=== PATIENT | female | born 2000 | race African-American/Black ===

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

== ENCOUNTER 2018-03-19 20:53 | Emergency (ER) | payer OTHER ==
[~2018-03-19] VITALS: Ht 167.6 cm; Wt 59.0 kg
[2018-03-19 21:09] VITALS: BP 108/72
--- NOTE | 2018-03-19 21:31 | PHYS DOC ---
Past Medical History Past Medical History: Asthma Past Surgical History: Tonsillectomy Additional Past Surgical Histo: T&A Alcohol Use: None Drug Use: Marijuana Adult General Chief Complaint Chief Complaint: SHOULDER INJURY HPI HPI Patient is a 17 year old female who presents with intermittent episodes of mild right shoulder pain that began 3 weeks ago, patient states she was throwing trash over her head at [employer] when the pain began. Patient states the pain is intermittent and only occurs when she moves her right upper extremity especially lifting it above her head. Patient denies any pain right now. Review of Systems Review of Systems Constitutional: Denies fever or chills [] Musculoskeletal: Reports right shoulder pain Integument: Denies rash or skin lesions [] Neurologic: Denies headache, focal weakness or sensory changes [] All other systems were reviewed and found to be within normal limits, except as documented in this note. Allergies Allergies Allergies Coded Allergies Type Severity Reaction Last Updated Verified No Known Drug Allergies 12/21/17 No Physical Exam Physical Exam Constitutional: Well developed, well nourished, no acute distress, non-toxic appearance. [] Skin: Warm, dry, no erythema, no rash. [] Back: No tenderness, no CVA tenderness. [] Extremities: Right shoulder with no obvious deformity. No tenderness on exam. Slight pain elicited on elevation of the right upper extremity above the head. Most of the pain was on the right scapula. Full range of motion to the right upper extremity. Adequate radial, medial, ulnar sensation to the right hand. +2 right radial pulse. Cap refill less than 2 seconds the right fingers. Neurologic: Alert and oriented X 3, normal motor function, normal sensory function, no focal deficits noted. [] Psychologic: Affect normal, judgement normal, mood normal. [] Current Patient Data Vital Signs Vital Signs Date Time Temp Pulse Resp B/P (MAP) Pulse Ox O2 Delivery O2 Flow Rate FiO2 03/19/18 21:09 98.3 85 16 108/72 (84) 99 Room Air 98.3 EKG EKG [] Radiology/Procedures Radiology/Procedures []PROCEDURE: SHOULDER 2+V RIGHT Indication:Injury at work. Shoulder pain. TECHNIQUE: 3 views of the right shoulder COMPARISON:None FINDINGS/ impression: No acute fracture or dislocation. Visualized right lung is clear. No arthritis. Electronically signed by: Sonny Chandra DO (03/19/2018 9:32 PM) [facility] DICTATED and SIGNED BY: SONNY CHANDRA DO DATE: 03/19/182130 Course & Med Decision Making Course & Med Decision Making Pertinent Labs and Imaging studies reviewed. (See chart for details) This is a 17-year-old female patient presenting to the ED today with right shoulder pain that began 3 weeks ago when she was throwing trash over her head at [employer]. Right shoulder xrays interpreted by radiologist are negative for any acute findings. Patient likely strained her right shoulder. Ice elevation encouraged. Diclofenac for pain. Follow-up with primary care doctor or the provided orthopedic doctor in 1-2 weeks. Dragon Disclaimer Dragon Disclaimer This electronic medical record was generated, in whole or in part, using a voice recognition dictation system. Departure Departure Impression: Primary Impression: Right shoulder strain Disposition: HOME, SELF-CARE Condition: STABLE Referrals: UNKNOWN PCP NAME (PCP) SHASHA KING MD follow up in 1 week Patient Instructions: Shoulder Exercises, Generic, SportsMed, Shoulder Sprain Additional Instructions: You were evaluated in the emergency room for shoulder pain, we suspect you strained your shoulder. Ice elevate the affected area. Take the prescribed medication as needed for pain. Follow-up with your own doctor/workman comp or the provided orthopedic doctor in one week. Scripts Diclofenac Sodium (DICLOFENAC SODIUM) 50 Mg Tablet.dr 1 TAB PO BID, #20 TAB 0 Refills Prov: MAI EMERSON APRN 03/19/18 Problem Qualifiers Primary Impression: Right shoulder strain Encounter type: initial encounter Qualified Codes: S46.911A - Strain of unspecified muscle, fascia and tendon at shoulder and upper arm level, right arm , initial encounter MAI EMERSON APRN Mar 19, 2018 21:31
--- NOTE | 2018-03-19 21:37 | RAD ---
Indication:Injury at work. Shoulder pain. TECHNIQUE: 3 views of the right shoulder COMPARISON:None FINDINGS/ impression: No acute fracture or dislocation. Visualized right lung is clear. No arthritis. Electronically signed by: Sonny Dunn DO (03/19/2018 9:32 PM) [facility]
[2018-03-19] MEDS ORDERED: DICL50TA4 PO (21:42)
== END 2018-03-19 21:51 | disposition home or self-care (01) ==
LOC: ER 20:53
DX: S46.911A Strain of unspecified muscle, fascia and tendon at shoulder and upper arm level, right arm, initial encounter (principal); J45.909 Unspecified asthma, uncomplicated; Y92.89 Other specified places as the place of occurrence of the external cause; X50.9XXA Other and unspecified overexertion or strenuous movements or postures, initial encounter; Y93.89 Activity, other specified; Y99.0 Civilian activity done for income or pay
CPT/HCPCS: 73030; 99283

== ENCOUNTER 2018-04-04 20:59 | Emergency (ER) | payer OTHER ==
[~2018-04-04] VITALS: Ht 170.2 cm; Wt 67.6 kg
[~2018-04-04 20:59] MED LIST: DICL50TA4 PO
--- NOTE | 2018-04-04 23:13 | RAD ---
Right rib series to include a PA chest radiograph 04/04/2018 CLINICAL HISTORY: Lateral right rib pain post sledding injury. A PA digital radiograph of the chest was obtained. AP and oblique digital radiographs of the right ribs were obtained. The cardiac and mediastinal silhouettes are within normal limits in size and configuration. No acute pulmonary infiltrate is seen. No pleural effusion or pneumothorax is noted. The osseous structures are grossly intact. Specifically no right-sided rib fracture is seen. IMPRESSION: Negative study. Electronically signed by: Dm Dawkins MD (04/04/2018 11:11 PM) [facility]
[2018-04-04 23:29] VITALS: BP 112/66
[2018-04-04] MEDS ORDERED: NAPR-514 PO (23:45)
--- NOTE | 2018-04-04 23:45 | PHYS DOC ---
Past Medical History Past Medical History: Asthma (JENNIFER JO APRN) Past Surgical History: Tonsillectomy Additional Past Surgical Histo: T&A (JENNIFER JO APRN) Alcohol Use: None Drug Use: Marijuana (JENNIFER JO APRN) Adult General Chief Complaint Chief Complaint: SHOULDER INJURY HPI HPI Patient is a 17 year old AA female, brought to the ER by EMS, with complaints of right lateral rib pain that increases with inspiration after a sledding injury today. Pt reported feeling short of breath to EMS. Per EMS pt was hyperventilating with a rate of 30 BPM, 6 mg of morphine was given IV and the patient's respiratory rate decreased and her pain went away. PT reports having a right shoulder strain that she is currently in physical therapy for. She denies any increased pain in her shoulder or decreased ROM of R shoulder after sledding incident. Pt denies any chest pain, numbness, tingling, or weakness at this time. (JENNIFER JO APRN) Review of Systems Review of Systems Constitutional: Denies fever or chills [] Respiratory: Denies cough, see HPI Cardiovascular: No additional information not addressed in HPI [] GI: Denies abdominal pain Musculoskeletal: Denies back pain or joint pain, see HPI[] Integument: Denies rash or skin lesions [] Neurologic: Denies headache, focal weakness or sensory changes [] (JENNIFER JO APRN) Allergies Allergies Allergies Coded Allergies Type Severity Reaction Last Updated Verified No Known Drug Allergies 12/21/17 No (SAUMYA TERRY MD) Physical Exam Physical Exam Constitutional: Well developed, well nourished, no acute distress, non-toxic appearance. [] HENT: Normocephalic, atraumatic, bilateral external ears normal, oropharynx moist, no oral exudates, nose normal. [] Eyes: conjunctiva normal, no discharge. [] Neck: Normal range of motion, no stridor. [] Cardiovascular:Heart rate regular rhythm, no murmur [] Lungs & Thorax: Bilateral breath sounds clear to auscultation; R lateral ribs tender to palpation, regular even respirations[] Skin: Warm, dry, no erythema, no rash. [] Extremities: No tenderness, crepitus, or deformity with palpation of right shoulder or clavicle; no cyanosis, no clubbing, ROM intact, no edema. [] Neurologic: Alert and oriented X 3, normal motor function, normal sensory function, no focal deficits noted. [] Psychologic: Affect normal, judgement normal, mood normal. [] (JENNIFER JO APRN) Current Patient Data Vital Signs Vital Signs Date Time Temp Pulse Resp B/P (MAP) Pulse Ox O2 Delivery O2 Flow Rate FiO2 04/04/18 23:29 107 112/66 (81) 100 Room Air 04/04/18 21:29 20 04/04/18 21:00 98.1 98.1 (SAUMYA TERRY MD) EKG EKG [] (JENNIFER JO APRN) Radiology/Procedures Radiology/Procedures PROCEDURE: RIBS RIGHT AND PA CHEST Right rib series to include a PA chest radiograph 04/04/2018 CLINICAL HISTORY: Lateral right rib pain post sledding injury. A PA digital radiograph of the chest was obtained. AP and oblique digital radiographs of the right ribs were obtained. The cardiac and mediastinal silhouettes are within normal limits in size and configuration. No acute pulmonary infiltrate is seen. No pleural effusion or pneumothorax is noted. The osseous structures are grossly intact. Specifically no right-sided rib fracture is seen. IMPRESSION: Negative study. [] (JENNIFER JO APRN) Course & Med Decision Making Course & Med Decision Making Pertinent Labs and Imaging studies reviewed. (See chart for details) [] (JENNIFER JO APRN) Course & Med Decision Making Staff Physician Addendum: I was working in the ER during the course of this patient's visit. I was available for consultation as needed, but I was not directly involved in the care of this patient. (SAUMYA TERRY MD) Dragon Disclaimer Dragon Disclaimer This electronic medical record was generated, in whole or in part, using a voice recognition dictation system. (JENNIFER JO APRN) Departure Departure Impression: Primary Impression: Contusion of rib on right side Disposition: HOME, SELF-CARE Condition: STABLE Referrals: NARCISO RAY MD (PCP) Patient Instructions: Rib Contusion Additional Instructions: Fill prescription(s) and use as directed. Recommend application of ice for 10- 15 minutes as needed for pain every 1-2 hours for the first day, then as needed. Follow up with your PCP if symptoms persist. Return to the ER if your symptoms worsen. Scripts Naproxen (NAPROXEN) 500 Mg Tablet 1 TAB PO BID for 10 Days, #20 TAB 0 Refills Prov: JENNIFER JO APRN 04/04/18 Problem Qualifiers Primary Impression: Contusion of rib on right side Encounter type: initial encounter Qualified Codes: S20.211A - Contusion of right front wall of thorax, initial encounter JENNIFER JO APRN Apr 04, 2018 23:45 SAUMYA TERRY MD Apr 05, 2018 06:05
== END 2018-04-04 23:55 | disposition home or self-care (01) ==
LOC: ER 20:59
DX: S20.211A Contusion of right front wall of thorax, initial encounter (principal); M25.511 Pain in right shoulder; J45.909 Unspecified asthma, uncomplicated; X58.XXXA Exposure to other specified factors, initial encounter; Y93.23 Activity, snow (alpine) (downhill) skiing, snowboarding, sledding, tobogganing and snow tubing; Y92.89 Other specified places as the place of occurrence of the external cause; Y99.8 Other external cause status
CPT/HCPCS: 71101; 99283

== ENCOUNTER 2018-06-29 03:03 | Emergency (ER) | payer OTHER ==
[~2018-06-29] VITALS: Ht 170.2 cm; Wt 67.6 kg
[~2018-06-29 03:03] MED LIST changes: +NAPR-514 PO
[2018-06-29 03:21] VITALS: BP 117/71
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
[2018-06-29] MEDS ORDERED: ONDANSETRON ODT 4 MG TAB.RAPDIS. PO ONE (04:00)
[2018-06-29] MEDS ORDERED: HYDROcodone/APAP 10/325 1 TAB TABLET PO ONE (04:00)
--- NOTE | 2018-06-29 05:08 | RAD ---
RS Compliance Statement: One or more of the following individualized dose reduction techniques were utilized for this examination: 1. Automated exposure control 2. Adjustment of the mA and/or kV according to patient size 3. Use of iterative reconstruction technique CT HEAD AND CERVICAL SPINE WITHOUT CONTRAST History: Head injury. Comparison: None. Procedure: Axial images are obtained of the head from the skull base through the vertex without IV contrast. Noncontrast helical CT of the cervical spine was performed. Axial, sagittal, and coronal reconstructions were obtained. Findings: The ventricles and sulci are normal for the patient's age. No mass-effect, midline shift, hemorrhage or obvious acute infarction is identified. Basilar cisterns are patent. Bone windows demonstrate no significant calvarial abnormality. The visualized paranasal sinuses are clear. Mastoid air cells are well aerated. There is no evidence of acute fracture or acute malalignment of the cervical spine. There are no perched or jumped facet joints. There is mild grade 1 anterolisthesis of C2 on C3. The alignment is otherwise maintained. There is no disc space narrowing. The craniovertebral junction is intact. Visualized soft tissues of the neck demonstrate no significant abnormalities. The visualized lung apices are clear. IMPRESSION: 1. No acute intracranial abnormality. 2. No acute fracture of the cervical spine. Electronically signed by: Jose Guadalupe Mendez MD (06/29/2018 5:05 AM) [facility]
== END 2018-06-29 05:18 | disposition home or self-care (01) ==
LOC: ER 03:03
DX: S13.4XXA Sprain of ligaments of cervical spine, initial encounter (principal); F07.81 Postconcussional syndrome; J45.909 Unspecified asthma, uncomplicated; W18.09XA Striking against other object with subsequent fall, initial encounter; Y93.89 Activity, other specified; Y92.89 Other specified places as the place of occurrence of the external cause; Y99.8 Other external cause status
CPT/HCPCS: 70450; 72125; 81025; 99284; Q0162